=== PATIENT | female | born 1965 | race Caucasian/White ===

== ENCOUNTER 2019-06-18 11:06 | Emergency (ER) | payer OTHER ==
[~2019-06-18] VITALS: Ht 167.6 cm; Wt 103.4 kg
[2019-06-18] MEDS ORDERED: MONTELUKAST SODI4 M1 PO (11:10)
[2019-06-18] MEDS ORDERED: COZAAR 25 MG TA25 M2 PO (11:11)
[2019-06-18] MEDS ORDERED: NORVASC 2.5 MG2.5 M1 PO (11:11)
[2019-06-18] MEDS ORDERED: ALPRAZOLAM XR3 MG PO (11:11)
[2019-06-18] MEDS ORDERED: TRAMADOL 50 MG50 MG PO (11:11)
[2019-06-18] MEDS ORDERED: VENLAFAXINE HC150 M1 PO (11:11)
[2019-06-18] MEDS ORDERED: LEVO-T25 MCG PO (11:12)
[2019-06-18] MEDS ORDERED: NEURONTIN300 MG PO (11:12)
[2019-06-18 12:06] LABS: CALCIUM 10.6 mg/dL (8.5-10.1); CREATININE 0.9 mg/dL (0.6-1.0); POTASSIUM 4.3 mmol/L (3.5-5.1)
[2019-06-18] MEDS ORDERED: PROTONIX40 M2 PO (13:18)
[2019-06-18 13:30] VITALS: BP 161/74
== END 2019-06-18 13:33 | disposition home or self-care (01) ==
LOC: ER 11:06
PROVIDERS: Emergency Medicine
DX: S20.212A Contusion of left front wall of thorax, initial encounter (principal); S20.211A Contusion of right front wall of thorax, initial encounter; K29.70 Gastritis, unspecified, without bleeding; R05 Cough; Z88.5 Allergy status to narcotic agent; Z88.1 Allergy status to other antibiotic agents; Z79.899 Other long term (current) drug therapy; Z90.49 Acquired absence of other specified parts of digestive tract; W50.1XXA Accidental kick by another person, initial encounter; Y93.89 Activity, other specified; Y92.89 Other specified places as the place of occurrence of the external cause; Y99.8 Other external cause status